=== PATIENT | female | born 1985 | race Caucasian/White ===

== ENCOUNTER 2022-04-06 11:28 | Emergency (ER) | payer OTHER ==
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
[2022-04-06] MEDS ORDERED: FLUCONAZOLE 100 MG TAB ONE (14:50)
[2022-04-06] MEDS ORDERED: AZITHROMYCIN 250 MG TAB ONE (14:50)
[2022-04-06] MEDS ORDERED: CEFTRIAXONE 500 MG/VIAL ONE (14:50)
[2022-04-06] MEDS ORDERED: ONDANSETRON 4 MG (ODT) TAB ONE (14:51)
[2022-04-06 17:22] VITALS: TEMP 99.1
[2022-04-06 17:25] VITALS: BP 149/86; O2SAT 97
== END 2022-04-06 15:21 | disposition home or self-care (01) ==
LOC: ER 11:28
DX: T76.21XA Adult sexual abuse, suspected, initial encounter (principal); F17.210 Nicotine dependence, cigarettes, uncomplicated; Z88.1 Allergy status to other antibiotic agents; Z88.5 Allergy status to narcotic agent; Z88.8 Allergy status to other drugs, medicaments and biological substances
CPT/HCPCS: 96372; 99284; J0696

== ENCOUNTER 2022-07-11 09:52 | Emergency (ER) | payer OTHER ==
--- OUTSIDE RECORDS SUMMARY | 2022-07-11 09:55 | XMS REPORT | Continuity of Care Document ---
:1985 Author Organization [facility] t Address [address] [place] [address] Care Team Providers Name Role Phone Pia Mary Primary Care Physician Pia Mary Attending Clinician Viki_P Attending Clinician Unavailable James Admitting Clinician Unavailable Payers Payer Name Policy Type Policy Number Effective Date Expiration Date S ource Problems Condition Condition Condition Status Onset Resolution Last Treating Co mments Source Name Details Category Date Date Treatment Clinician Date Thrombocyt Thrombocyt Disease Active 2020-11 U nivers osis, osis, 2- it[place] [facility] Chronic Chronic Disease Active 2020-11 Univers ear pain, ear pain, 2- [place] Bulge of Bulge of Disease Active 2020-11 Unive rs lumbar lumbar 2- ity of disc disc 00:00: [place] without without 00 Medical myelopathy myelopathy Br anch Mixed Mixed Disease Active 2020-11 Univers hyperlipid hyperlipid 2-02 it y of emia emia 00:00: [place] 00 Medical Branch PCOS PCOS Disease Active 2020-11 Univers (polycysti (polycysti 2-02 it [place] of c ovarian c ovarian [place] syndrome[place] syndrome[place] 00 [facility] COPD COPD Disease Active 2020-11 Univers (chronic (chronic 1-13 ity of obstructiv obstructiv [place] 00 Medical pulmonary pulmonary Bran ch disease) disease) Pneumonia Pneumonia Disease Active Uni vers 2-08 ity of 00:00: Medical Branch History of History of Disease Active U nivers PCOS PCOS 8- ity of 00:00: Medical Branch Screening Screening Disease Active Uni vers examinatio examinatio 8 it y of n for STD n for STD 00:00: [place] (sexually (sexually 00 Medi isabell transmitte transmitte Br anch d disease) d disease) Acute Acute Disease Active Univers diastolic diastolic 5-04 ity of congestive congestive 00:[place] heart heart 00 Medical failure failure Branch Pulmonary Pulmonary Disease Active Uni vers hypertensi hypertensi 5-04 it y of on on 00:00: Medical Branch Pulmonary Pulmonary Disease Active Uni vers edema edema 5-03 ity of 00:00: Medical Branch Fever Fever Disease Active Univers 5-03 ity of 00:00: Medical Branch Dyspnea on Dyspnea on Disease Active U nivers exertion exertion 5-03 ity of 00:00: Medical Branch Cardiomega Cardiomega Disease Active U nivers ly ly 5-03 ity of 00:00: Medical Branch Morbid Morbid Disease Active Univers obesity obesity 3-07 ity of with body with body 00:00: [place] mass index mass index 00 Me dical of of Branch 40.0-49.9 40.0-49.9 Smoker Smoker Disease Active 2013-11 Univers 1- ity of 00:00: Medical Branch Acne Acne Disease Active 2013-11 Univers 1-19 ity of 00:00: [place] [facility] Hypothyroi Hypothyroi Disease Active 2013-11 U nivers dism dism - ity of 00:00: Medical Branch Mental Mental Disease Active 2013-11 Univers disorder disorder - ity of 00:00: [place] [facility] Irregular Irregular Disease Active 2013-11 Uni vers menstrual menstrual - ity of cycle cycle 00:00: Medical Branch Pain Pain Disease Active Univers pelvic pelvic 5- ity of 00:00: Medical Branch LSIL (low LSIL (low Disease [...] ligation 4-11 ity of status status 00:00: [place] 00 Medical Branch Allergies, Adverse Reactions, Alerts [...] Thrush Uni vers (Sulfona ty to comments -15 with ity of mide adverse 00:00: sulfa [place] Antibiot reaction 00 Antibioti Med ical ics) s cs Branch Morphine Propensi Active Nausea Univer s ty to and/or -15 ity of adverse Vomiting 00:00: [place] reaction 00 Medical s Branch Codeine Drug Active Nausea per Univers Allergy and/or 06-15 patient, ity of Vomiting 00:00: "I had to [place] 00 have an Medical epi pen Branch given to me after having cough syrup with codeine" Social History Social Habit Start Date Stop Date Quantity Comments Source History [facility] University o f Alcohol Frequency [place] M edical Branch History [facility] University o f Alcohol Std Drinks [place] [facility] History [facility] University o f Alcohol Binge [place] Medic al Branch History of tobacco Cigarette Smoker University of use [facility] Alcohol intake 2022-02-09 2022-02-09 Current drinker Unive rsity of 00:00:00 00:00:00 of alcohol [place] Medical (finding) Branch Alcohol Comment 2022-01-13 2022-01-13 occasional Universit y of 00:00:00 00:00:00 [facility] Cigarettes smoked 2022-01-13 2022-01-13 Univers ity of current (pack per 00:00:00 00:00:00 ) - Reported Branch Cigarette 2022-01-13 2022-01-13 University of pack-years 00:00:00 00:00:00 [facility] Tobacco use and 2022-01-13 2022-01-13 Smokeless tobacco Un iversity of exposure 00:00:00 00:00:00 non-user [facility] Tobacco Comment 2017-03-28 2017-03-28 smoking since age Un iversity of 00:00:00 00:00:00 9. used to smoke [place] [email or web address] dical 2 packs a day for Branch 15 years and past few years doing a pack a day Sex Assigned At [birth year] Universit y of 00:00:00 00:00:00 [facility] Smoking Status Start Date Stop Date Source Smokes tobacco daily 2022-01-13 00:00:00 Univers ity of [facility] Medications Ordered Filled Start Stop Current Ordering Indication Dosage Frequency Signature Comments Components Source Medication Medication Date Date Medication? Clinician (SIG) Name Name pantoprazol 2021- No 40mg Take 40 mg Univers e 40 mg EC 8- 08- by mouth ity of tablet 10:55: 00:00 daily. [place] 23 :00 [facility] pantoprazol Yes [id number] 40mg Take 1 Univers e 40 mg EC 8-02 tablet by ity of tablet 00:00: mouth in [place] 00 the Medical morning. Branch metFORMIN Yes [id number] 500mg Take 1 Univers 500 mg 7-11 tablet by ity of tablet 00:00: mouth in [place] 00 the Medical morning Branch and 1 tablet in the evening. Take with meals. metFORMIN Yes [id number] 500mg Take 1 Univers 500 mg 7-11 tablet by ity of tablet 00:00: mouth in [place] the Medical morning Branch and 1 tablet in the evening. Take with meals. metFORMIN 2021-0 2021- No [id number] 500mg Take 1 Univers 500 mg 6-06 01-11 tablet by ity of tablet 00:00: 00:00 mouth 2 [place] 00 :00 (two) Medical times Branch daily with meals. atorvastati Yes [id number] 40mg Take 1 Univers n 40 mg 5-16 tablet by ity of tablet 00:00: mouth at [place] [id number] bedtime. Medical Branch atorvastati Yes [id number] 40mg Take 1 Univers n 40 mg 5-16 tablet by ity of tablet 00:00: mouth at [place] 00 bedtime. Medical Branch budesonide- Yes [id number] 1{puff} Inhale 1 Univers formoteroL 3-17 Puff 2 ity of 160-4.5 00:00: (two) [place] mcg/actuati 00 times Medical on inhaler daily. Branch albuterol-i Yes 1{puff} Inhale 1 Univers pratropium 3-17 Puff every ity of (COMBIVENT 00:00: 6 (six) [place] RESPIMAT[place] 00 hours as Medica l 20-100 needed for Branch mcg/actuati Wheezing on inhaler or Shortness of Breath. budesonide- Yes [id number] 1{puff} Inhale 1 Univers formoteroL 3-17 Puff 2 ity of 160-4.5 00:00: (two) [place] mcg/actuati 00 times Medical on inhaler daily. Branch albuterol-i Yes 1{puff} Inhale 1 Univers pratropium 3-17 Puff every ity of (COMBIVENT 00:00: 6 (six) [place] RESPIMAT[place] 00 hours as Medica l 20-100 needed for Branch mcg/actuati Wheezing on inhaler or Shortness of Breath. baclofen 5 Yes [id number] 5mg Take 1 U nivers mg tablet 2-18 tablet by ity o f 00:00: mouth 3 00 (three) Medical times Branch daily as needed for Other (muscle spasm lumbar). baclofen 5 Yes [id number] 5mg Take 1 U nivers mg tablet 2-18 tablet by ity o f 00:00: mouth 3 [place] 00 (three) Medical times Branch daily as needed for Other (muscle spasm lumbar). ARIPiprazol 2020-11 Yes 15mg Take 15 mg Univers e 15 mg 2-02 by mouth ity of tablet 13:21: daily. [place] 29 Medical Branch pantoprazol 2020-11 Yes 40mg Take 40 mg Univers e 40 mg EC 2-02 by mouth ity o f tablet 13:21: daily. [address] PARoxetine 2020-11 Yes 40mg Take 40 mg U nivers (PAXIL) 40 2-02 by mouth ity o f mg tablet 13:21: daily. [address] oxybutynin 2020-11 Yes 10mg Take 10 mg U nivers 10 mg 24 hr 2-02 by mouth ity of tablet 13:21: daily. [address] PARoxetine 2020-11 Yes 10mg Take 10 mg U nivers (PAXIL) 10 2-02 by mouth ity o f mg tablet 13:21: daily. [address] ARIPiprazol 2020-11 Yes 15mg Take 15 mg Univers e 15 mg 2-02 by mouth ity of tablet 13:21: daily. [address] PARoxetine 2020-11 Yes 40mg Take 40 mg U nivers (PAXIL) 40 2-02 by mouth ity o f mg tablet 13:21: daily. [address] oxybutynin 2020-11 Yes 10mg Take 10 mg U nivers 10 mg 24 hr 2-02 by mouth ity of tablet 13:21: daily. [address] PARoxetine 2020-11 Yes 10mg Take 10 mg U nivers (PAXIL) 10 2-02 by mouth ity o f mg tablet 13:21: daily. [address] loratadine 2020-11 Yes 10mg Take 10 mg U nivers (CLARITIN 2-02 by mouth ity of ORAL) 13:07: daily. [address] loratadine 2020-11 Yes 10mg Take 10 mg U nivers (CLARITIN 2-02 by mouth ity of ORAL) 13:07: daily. [address] albuterol Yes [id number] 2{puff} Inhale 2 Univers 90 2-11 Puffs ity of mcg/actuati 00:00: every 4 [place] as on inhaler 00 (four) Medical hours as Branch needed for Wheezing or Shortness of Breath. albuterol Yes [id number] 2{puff} Inhale 2 Univers 90 2-11 Puffs ity of mcg/actuati 00:00: every 4 [place] as on inhaler 00 (four) Medical hours as Branch needed for Wheezing or Shortness of Breath. Immunizations Ordered Filled Immunization Date Status Comments [facility] e Immunization Name Name Influenza Virus 2021-10-09 Completed Universit y of Vaccine Quad IM, 00:00:00 [place] Me dical Preserv and ABX Branch Free 6 MO-64 YRS Influenza Virus 2021-10-09 Completed Universit y of Vaccine [facility] IM, 00:00:00 [place] Me dical Preserv and ABX Branch Free 6 MO-64 YRS Pneumococcal 2021-08-11 Completed University o f Polysaccharide, 00:00:00 [place] Med ical PPSV23 (PNEUMOVAX) Branch Pneumococcal 2021-08-11 Completed University o f Polysaccharide, 00:00:00 [place] Med ical PPSV23 (PNEUMOVAX) Branch SARS-COV-2 COVID-19 2021-07-20 Completed Unive rsity of PFIZER VACCINE 00:00:00 [facility] SARS-COV-2 COVID-19 2021-07-20 Completed Unive rsity of PFIZER VACCINE 00:00:00 [facility] SARS-COV-2 COVID-19 2021-06-29 Completed Unive rsity of PFIZER VACCINE 00:00:00 [facility] SARS-COV-2 COVID-19 2021-06-29 Completed Unive rsity of PFIZER VACCINE 00:00:00 [facility] DTAP 2018-10-10 Completed University of 00:00:00 [facility] DTAP 2018-10-10 Completed University of 00:00:00 [facility] TDAP 2011-08-22 Completed University of 00:00:00 [facility] TDAP 2011-08-22 Completed University of 00:00:00 [facility] Rubella 2010-11-29 Completed University of 00:00:00 [facility] Rubella 2010-11-29 Completed University of 00:00:00 [facility] Procedures This patient has no known procedures. Encounters Start End Encounter Admission Attending Care Care Encounter Source Date/Time Date/Time Type Type Clinicians Facility Department ID 2022-06-26 2022-06-26 BRIEN Gan [id number] Univers 00:00:00 00:00:00 [email or web address] [id number] it y of KEITH [id number] Jason as LOUISA?BLEA [id number] Mi aftab [address] OFFICE [facility] 2022-06-05 2022-06-05 Richelle Crooks [facility] [id number] 00:00:00 00:00:00 [employer] [id number] it y of ADEL [id number] Jason as LOUISA?BLEA [id number] [address] OFFICE [facility] 2020-02-18 2020-02-18 [place] [id number] [place] 05:32:00 05:32:00 0325 [facility] Results This patient has no known results.
[2022-07-11 10:25] LABS: Absolute Lymphocytes (CBC) 2.8 K/uL (0.7-4.9); Hematocrit 41.5 % (36.0-45.0); Lymphocytes % 21.1 % (15.3-44.8); MCV 90.6 fL (80-100); MPV 6.8 fL (7.6-11.3); RBC Red Blood Cell Count 4.58 M/uL (3.86-4.86)
--- NOTE | 2022-07-11 11:50 | RAD REPORT ---
EXAM DESCRIPTION: RAD - Chest Single View - 07/11/2022 11:26 am CLINICAL HISTORY: DYSPNEA COMPARISON: Two view chest 06/25/2018 TECHNIQUE: AP portable chest image was obtained 07/11/2022 11:26 am . FINDINGS: No dense mass or consolidation. Interstitial markings appear increased over prior imaging, in part due to under penetrated portable technique. Interstitial edema or infiltrate cannot be exclu ded. Heart size is prominent. A mild failure would be a consideration. No measurable pleural effusion and no pneumothorax. No acute bony abnormality seen. No acute aortic findings suspected. IMPRESSION: Heart, vasculature and lung markings are prominent compared to prior study. Mild failure or volume overload is suspected.
[2022-07-11 12:05] LABS: Magnesium 2.1 mg/dL (1.8-2.4); Potassium 3.5 mmol/L (3.5-5.1); Troponin High Sensitivity 4.1 pg/mL (<58.9)
--- NOTE | 2022-07-11 13:08 | RAD REPORT ---
EXAM DESCRIPTION: CT - Chest For Pe Angio - 07/11/2022 12:53 pm CLINICAL HISTORY: Shortness of breath COMPARISON: None. TECHNIQUE: Dynamically enhanced axial 3 mm thick images of the chest were obtained during administra tion of <100> mL Isovue 370 IV contrast. Coronal and oblique reconstruction images were generated and reviewed. Exam utilizes a protocol for optimal evaluation of pulmonary arterial tree. Maximum intensity projections 3D imaging was utilized All CT scans are performed using dose optimization technique as appropriate and may include automated exposure control or mA/KV adjustment according to patient size. FINDINGS: A pulmonary embolus is not seen. A thoracic aortic aneurysm is not noted. A pleural effusion is not seen. A pericardial effusion is not seen. Mild bilateral pulmonary opacities. IMPRESSION: Negative for a pulmonary embolism. Mild bilateral pulmonary opacities may represent pulmonary edema or pneumonia
--- NOTE | 2022-07-11 14:05 | ER ---
Nurse's Notes [facility] Name: Dave Webster Age: 37 yrs Sex: Female : 1985 Arrival Date: 07/11/2022 Time: 09:55 Bed 8 Private MD: Diagnosis: COPD/ Chronic obstructive pulmonary disease with (acute) exacerbation;Acute pulmonary edema-mild Presentation: 07/11 10:00 Chief complaint: Patient states: Per Pt and EMS; pt was smoking BULL a month ago and has jh5 progressively gotten worse. Pt is a 1.5-2 pack smoker daily, plus weed daily. Pt states she woke up this morning feeling like she couldn't breath. Coronavirus screen: Vaccine status: Patient reports receiving the 2nd dose of the covid vaccine. Client denies travel out of the [place] in the last 14 days. Ebola Screen: Patient negative for fever greater than or equal to 101.5 degrees Fahrenheit, and additional compatible Ebola Virus Disease symptoms Patient denies exposure to infectious person. Patient denies travel to an Ebola-affected area in the 21 days before illness onset. Initial Sepsis Screen: Does the patient meet any 2 criteria? No. Patient's initial sepsis screen is negative. Does the patient have a suspected source of infection? No. Patient's initial sepsis screen is negative. Risk Assessment: Do you want to hurt yourself or someone else? Patient reports no desire to harm self or others. Onset of symptoms was May 2022. 10:00 Method Of Arrival: EMS: [facility] 10:00 Acuity: [place] 2 5 Triage Assessment: 10:07 General: Appears uncomfortable, obese, unkempt, well nourished, Behavior is calm, jh5 cooperative, appropriate for age. Pain: Denies pain. 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 - Social history:: Smoking status: Patient reports the use of cigarette tobacco products, smokes two packs cigarettes per day. weed, daily. Screenin:12 Abuse screen: Denies threats or abuse. Denies injuries from another. Nutritional [facility] screening: No deficits noted. Tuberculosis screening: No symptoms or risk factors identified. Fall Risk IV access (20 points). Vital Signs: 10:00 BP 102 / 58; Pulse 73; Resp 18; Temp 98.8; Pulse Ox 93% on NC; Weight 158.76 kg; Height 5 5 ft. 9 in. (175.26 cm); Pain 0/10; 12:51 BP 120 / 65; Pulse 71; Resp 24; Pulse Ox 94% on 2 lpm NC; jh5 10:00 Body Mass Index 51.69 (158.76 kg, 175.26 cm) [facility] ED Course: 09:55 Patient arrived in ED. kb 09:55 Payton Argueta [facility]-C [facility] kb 09:55 Kelechi Saul DO is Attending Physician. kb 10:00 Naya Mondragon, KERA is Primary Nurse. [facility] 10:07 Triage completed. [facility] 10:07 Arm band placed on right wrist. [facility] 10:12 Patient has correct armband on for positive identification. Bed in low position. Call [facility] light in reach. Side rails up X2. 10:12 No provider procedures requiring assistance completed. Inserted saline lock: 20 gauge jh5 in right antecubital area, using aseptic technique. 11:28 XRAY Chest (1 view) In Process Unspecified. EDMS 12:41 Inserted saline lock: 20 gauge in left antecubital area, using aseptic technique. IV jh5 discontinued, intact, bleeding controlled, No redness/swelling at site. Pressure dressing applied. 12:55 CT Chest For PE Angio In Process Unspecified. EDMS 14:30 IV discontinued, intact, bleeding controlled, No redness/swelling at site. Pressure tp1 dressing applied. Administered Medications: 14:25 Drug: SOLU-Medrol (methylPrednisoLONE) 125 mg Route: IVP; Site: left antecubital; tp1 14:34 Follow up: Response: Medication administered at discharge. tp1 14:34 Not Given (Patient Refused): Albuterol 2.5 mg Inhalation once tp1 14:34 Not Given (Patient Refused): AtroVENT (ipratropium) Aerosol 0.5 mg Inhalation once tp1 Medication: 10:13 VIS not applicable for this client. 5 Outcome: 14:04 Discharge ordered by . иван 14:35 Discharged to home ambulatory. tp1 14:35 Condition: good 14:35 Discharge instructions given to patient, Instructed on discharge instructions, follow up and referral plans. medication usage, Demonstrated understanding of instructions, follow-up care, medications, Prescriptions given X 3. 14:36 Patient left the ED. tp1 Signatures: Dispatcher [employer] EDPayton Drake FNP-C FNP-Ckb Rees, Jessica RN RN 5 Ladi Neil RN RN tp1
--- NOTE | 2022-07-11 14:05 | EDPHYS ---
Physician Documentation [facility] Name: Dave Webster Age: 37 yrs Sex: Female : 1985 Arrival Date: 07/11/2022 Time: 09:55 Bed 8 Private MD: ED Physician Kelechi Saul HPI: 07/11 10:02 This 37 yrs old Female presents to ER via Unassigned with complaints of shortness of kb breath. 10:02 The patient has shortness of breath at rest. Onset: The symptoms/episode began/occurred kb 3 week(s) ago. Duration: The symptoms are continuous. The patient's shortness of breath is aggravated by exertion. Associated signs and symptoms: Pertinent positives: productive cough, lower extremity edema. Severity of symptoms: At their worst the symptoms were moderate in the emergency department the symptoms are unchanged. The patient has experienced similar episodes in the past. The patient has not recently seen a physician. Pt reports shortness of breath that is worse on exertion, productive cough, and lower extremity edema that started 3 weeks ago and is getting worse. States she believes this is due to smoking "graciela" 3 weeks ago. States she smokes marijuana daily, but cannot handle graciela. States she was taken off of her medications a while ago by her old PCP and has not seen her new PCP to get back on them including lasix. Pt smokes 1.5-2 packs of cigarrettes per day as well. . 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: 10:07 LMP N/A - Irregular menses jh5 Historical: - Allergies: 10:07 Xarelto; jh5 10:07 Sulfa (Sulfonamide Antibiotics); jh5 10:07 Morphine; jh5 10:07 Flagyl; jh5 10:07 Codeine; jh5 10:07 Bactrim; jh5 - Home Meds: 10:07 Abilify 10 mg Oral tab 1 tab once daily [Active]; diclofenac Oral [Active]; metformin jh5 1,000 mg Oral tab 1 tab 2 times per day [Active]; pantoprazole 40 mg Oral TbEC 1 tab once daily [Active]; ProAir HFA inhalation [Active]; - PMHx: 10:07 borderline diabetic; COPD; depressive disorder; GERD; Non alcoholic fatty liver; PCOS; jh5 - Immunization history:: Adult Immunizations up to date. - Social history:: Smoking status: Patient reports the use of cigarette tobacco products, smokes two packs cigarettes per day. weed, daily. ROS: 10:01 Constitutional: Negative for fever, chills, and weight loss. kb 10:01 Cardiovascular: Positive for edema. 10:01 Respiratory: Positive for cough, dyspnea on exertion, shortness of breath. 10:01 All other systems are negative. Exam: 10:01 Constitutional: This is a well developed, well nourished patient who is awake, alert, kb and in no acute distress. Head/Face: Normocephalic, atraumatic. ENT: Moist Mucous membranes Cardiovascular: Regular rate and rhythm with a normal S1 and S2. No gallops, murmurs, or rubs. No pulse deficits. Abdomen/GI: Soft, non-tender. No distention Skin: Warm, dry with normal turgor. Normal color. MS/ Extremity: Pulses equal, no cyanosis. Neurovascular intact. Full, normal range of motion. Neuro: Awake and alert, GCS 15, oriented to person, place, time, and situation. Moves all extremities. Normal gait. Psych: Awake, alert, with orientation to person, place and time. Behavior, mood, and affect are within normal limits. 10:01 Cardiovascular: Edema: 1+ edema to level of left foot and right foot. 10:01 Respiratory: the patient does not display signs of respiratory distress, Respirations: normal, Breath sounds: wheezing: expiratory that is mild, is scattered. 10:52 ECG was reviewed by the Attending Physician. Vital Signs: 10:00 BP 102 / 58; Pulse 73; Resp 18; Temp 98.8; Pulse Ox 93% on NC; Weight 158.76 kg; Height 5 5 ft. 9 in. (175.26 cm); Pain 0/10; 12:51 BP 120 / 65; Pulse 71; Resp 24; Pulse Ox 94% on 2 lpm NC; jh5 10:00 Body Mass Index 51.69 (158.76 kg, 175.26 cm) 5 MDM: 09:55 Patient medically screened. kb 10:02 Data reviewed: vital signs, nurses notes. Data interpreted: Pulse oximetry: on room air kb is 93 %. Interpretation: normal. 13:59 Counseling: I had a detailed discussion with the patient and/or guardian regarding: the kb historical points, exam findings, and any diagnostic results supporting the discharge/admit diagnosis, lab results, radiology results, the need for outpatient follow up, a family practitioner, to return to the emergency department if symptoms worsen or persist or if there are any questions or concerns that arise at home. 07/11 09:56 Order name: Basic Metabolic Panel; Complete Time: 12:06 kb 07/11 09:56 Order name: CBC with Diff; Complete Time: 10:26 kb 07/11 09:56 Order name: D-Dimer; Complete Time: 10:32 kb 07/11 09:56 Order name: Magnesium; Complete Time: 12:06 kb 07/11 09:56 Order name: NT PRO-BNP; Complete Time: 12:06 kb 07/11 09:56 Order name: Troponin HS; Complete Time: 12:06 kb 16 09:56 Order name: XRAY Chest (1 view); Complete Time: 11:54 kb 07/11 09:56 Order name: EKG; Complete Time: 09:59 kb 07/11 09:56 Order name: Cardiac monitoring; Complete Time: 10:18 kb 07/11 10:32 Order name: CT Chest For PE Angio; Complete Time: 13:20 kb 16 11:09 Order name: COVID-19 SARS RT PCR (Document "Date of Onset" if Symptomatic); Complete kb Time: 12:31 16 09:56 Order name: EKG - Nurse/Tech; Complete Time: 10:47 kb 16 09:56 Order name: IV Saline Lock; Complete Time: 10:18 kb 07/11 09:56 Order name: Labs collected and sent; Complete Time: 10:18 kb 07/11 09:56 Order name: O2 Per Protocol; Complete Time: 10:18 kb 07/11 09:56 Order name: O2 Sat Monitoring; Complete Time: 10:18 kb 16 10:30 Order name: Labs - recollect needed: recollect green top; Complete Time: 10:47 bd EC:52 Rate is 72 beats/min. Rhythm is regular. QRS Phelps is Normal. AL interval is normal at kb 200 msec. QRS interval is normal at 96 msec. QT interval is normal at 424 msec. Administered Medications: 14:25 Drug: SOLU-Medrol (methylPrednisoLONE) 125 mg Route: IVP; Site: left antecubital; tp1 14:34 Follow up: Response: Medication administered at discharge. tp1 14:34 Not Given (Patient Refused): Albuterol 2.5 mg Inhalation once tp1 14:34 Not Given (Patient Refused): AtroVENT (ipratropium) Aerosol 0.5 mg Inhalation once tp1 Disposition: 10:38 Co-signature as Attending Physician, Kelechi Saul DO I was immediately available on-site ms3 in the Emergency Department for consultation in the care of the patient. . Disposition Summary: 07/11/22 14:04 Discharge Ordered Location: Home kb Condition: Stable kb Diagnosis - COPD/ Chronic obstructive pulmonary disease with (acute) exacerbation kb - Acute pulmonary edema - mild kb Followup: kb - With: Emergency Department - When: As needed - Reason: Worsening of condition Followup: kb - With: Private Physician - When: 2 - 3 days - Reason: Recheck today's complaints, Continuance of care, Re-evaluation by your physician Discharge Instructions: - Discharge Summary Sheet kb - Chronic Obstructive Pulmonary Disease Exacerbation kb Forms: - Medication Reconciliation Form kb - Thank You Letter kb - Antibiotic Education kb - Prescription Opioid Use kb Prescriptions: - Prednisone 20 mg Oral Tablet - take 1 tablet by ORAL route once daily for 5 days; 5 tablet; Refills: 0, kb Product Selection Permitted - Lasix 20 mg Oral Tablet - take 1 tablet by ORAL route once daily; 10 tablet; Refills: 0, Product kb Selection Permitted - Zithromax 500 mg Oral Tablet - take 1 tablet by ORAL route once daily for 5 days; 5 tablet; Refills: 0, kb Product Selection Permitted Signatures: Dispatcher [employer] Payton Becker FNP-C FNP-Ckb Dirrim, Barbara bd Sims, Marcus, DO DO ms3 Naya Mondragon, RN RN jh5 Ladi Neil RN RN tp1
[2022-07-11] MEDS ORDERED: IPRATROPIUM BROM 0.5MG/2.5ML ONE (14:22)
[2022-07-11] MEDS ORDERED: METHYLPREDNISOLONE 125 MG INJ ONE (14:22)
[2022-07-11] MEDS ORDERED: ALBUTEROL 2.5 MG/3 ML NEB SOL ONE (14:22)
[2022-07-11 15:21] VITALS: TEMP 98.8
[2022-07-11 15:40] VITALS: BP 120/65; O2SAT 94
== END 2022-07-11 14:36 | disposition home or self-care (01) ==
LOC: ER 09:52
DX: J44.1 Chronic obstructive pulmonary disease with (acute) exacerbation (principal); J81.0 Acute pulmonary edema; F17.210 Nicotine dependence, cigarettes, uncomplicated; F32.A Depression, unspecified; Z88.1 Allergy status to other antibiotic agents; Z88.2 Allergy status to sulfonamides; Z88.5 Allergy status to narcotic agent; Z88.8 Allergy status to other drugs, medicaments and biological substances; Z20.822 Contact with and (suspected) exposure to COVID-19
CPT/HCPCS: 85025; 80048; 36415; 83735; 85379; 84484; 83880; 71275; 71045; U0003; Q9967; J2930